=== PATIENT | female | born 1955 | race African-American/Black ===

== ENCOUNTER 2017-03-04 11:13 | Emergency (ER) | payer OTHER, MEDICARE ==
[~2017-03-04] VITALS: Ht 160 cm; Wt 73.0 kg
[~2017-03-04 11:13] MED LIST: EMPA1TAB3 PO; GLIP5TAB8 PO; LISI-515 PO; MIRA33504 PO; MOBI15TA PO; PERI8.6T PO; PHEN200C3 PO; ZANTTAB9 PO; lancets; test strips
[2017-03-04 11:20] VITALS: BP 165/89; PULSE 86; RESP 17; TEMP 98.4; O2SAT 99
[2017-03-04] MEDS ORDERED: ONDANSETRON HCL 4 MG/2 ML VIAL IVP ONE (11:30)
[2017-03-04] MEDS ORDERED: ZANT150T2 PO (11:30)
[2017-03-04] MEDS ORDERED: MORPHINE SULFATE 4 MG/ML INJ IV PUSH ONE (11:30)
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
[2017-03-04] MEDS ORDERED: NOVOLOGP2 SQ (11:35)
[2017-03-04 11:52] LABS: AUTOMATED NEUTROPHIL # 2.7 TH/MM3 (1.8-7.7); BASOPHIL % 0.6 % (0.0-2.0); EOSINOPHIL # 0.1 TH/MM3 (0-0.4); EOSINOPHIL % 1.3 % (0.0-4.0); HEMATOCRIT 34.9 % (35.0-46.0); HEMO FLAGS DIFF FINAL; LYMPH % 40.6 % (9.0-44.0); LYMPHOCYTE # 2.2 TH/MM3 (1.0-4.8); MEAN CELL VOLUME 86.1 FL (80.0-100.0); MEAN CORPUSCULAR HEMOGLOBIN 28.6 PG (27.0-34.0); MEAN CORPUSCULAR HGB CONC 33.2 % (32.0-36.0); MONO % 7.8 % (0.0-8.0); NEUT % 49.7 % (16.0-70.0); PLATELET COUNT 271 TH/MM3 (150-450); RED BLOOD COUNT 4.06 MIL/MM3 (4.00-5.30); WHITE BLOOD COUNT 5.4 TH/MM3 (4.0-11.0)
[2017-03-04 12:14] LABS: ALT (GPT) 13 U/L (10-53)
[2017-03-04 12:16] LABS: ALKALINE PHOSPHATASE 104 U/L (45-117); TOTAL BILIRUBIN ADULT 0.2 MG/DL (0.2-1.0)
[2017-03-04 12:37] LABS: ANION GAP 9 MEQ/L (5-15); AST (GOT) 14 U/L (15-37); BICARBONATE 24.2 MEQ/L (21.0-32.0); BLOOD UREA NITROGEN 19 MG/DL (7-18); CHLORIDE 107 MEQ/L (98-107); GLOMERULAR FILTRATION RATE 69 ML/MIN (>89); SODIUM (NA) 140 MEQ/L (136-145)
[2017-03-04 12:40] LABS: POTASSIUM 4.4 MEQ/L (3.5-5.1)
[2017-03-04] MEDS ORDERED: IOHEXOL 350 MG/ML 10 ML VIAL (for RAD DIAG) IVCONTRAST ONE (14:01)
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
[2017-03-04] MEDS ORDERED: TYLETAB34 PO (14:40)
== END 2017-03-04 15:16 | disposition home or self-care (01) ==
LOC: NEPE 11:13
DX: S30.1XXA Contusion of abdominal wall, initial encounter (principal); S39.012A Strain of muscle, fascia and tendon of lower back, initial encounter; E11.9 Type 2 diabetes mellitus without complications; V49.49XA Driver injured in collision with other motor vehicles in traffic accident, initial encounter; Y92.410 Unspecified street and highway as the place of occurrence of the external cause; Z79.4 Long term (current) use of insulin
CPT/HCPCS: 72131; 74177; 80053; 83690; 85025; 96374; 96375; 99284; J2270; J2405; L0150; Q9967

== ENCOUNTER 2017-04-28 17:51 | Emergency (ER) | payer MEDICARE, MEDICAID ==
[~2017-04-28] VITALS: Ht 162.6 cm; Wt 75.0 kg
[2017-04-28 17:51] VITALS: BP 209/104; PULSE 101; RESP 20; TEMP 99; O2SAT 100
[~2017-04-28 17:51] MED LIST changes: -MIRA33504 PO; +NOVOLOGP2 SQ; -PERI8.6T PO; +TYLETAB34 PO; +ZANT150T2 PO; -ZANTTAB9 PO; -lancets; -test strips
[2017-04-28 20:04] VITALS: BP 190/89
[2017-04-28] MEDS ORDERED: TETANUS/DIPHTHERIA TOXOID ADULT 0.5 ML VIAL IM ONE (20:15)
--- NOTE | 2017-04-28 20:23 | PD ---
HPI Chief Complaint: Laceration/Skin Injury Time Seen by Provider: 20:12 Travel History International Travel<30 days: No Contact w/Intl Traveler<30days: No Traveled to known affect area: No History of Present Illness HPI 61-year-old black female presents to emergency department for evaluation of a toe laceration which occurred last evening. She states that she was barefoot last evening and somehow cut her toe on something underneath her table. She states that she did not realize that she calls laceration until earlier today. Patient states that she has diabetes and neuropathy. She has not had a tetanus shot over 5 years. Pain is mild. PFSH Past Medical History Arthritis: Yes Cardiovascular Problems: Yes (HTN) Diabetes: Yes Diminished Hearing: No GERD: Yes Hypertension: Yes Musculoskeletal: Yes Neurologic: No Tetanus Vaccination: > 5 Years Menopausal: Yes Past Surgical History Gynecologic Surgery: Yes Hysterectomy: Yes Social History Alcohol Use: No Tobacco Use: No Substance Use: No Allergies-Medications (Allergen,Severity, Reaction): Coded Allergies: No Known Allergies (Verified Adverse Reaction, Unknown, 04/28/17) Reported Meds & Prescriptions Reported Meds & Active Scripts Active Keflex (Cephalexin) 500 Mg Cap 500 Mg PO Q6H 7 Days Tylenol-Codeine #3 (Acetaminophen-Codeine) 300-30 mg Tab 1 Tab PO Q4H PRN Glipizide 5 Mg Tab 5 Mg PO BIDAC Take 30 minutes before a meal Reported Novolog Inj (Insulin Aspart) 1,000 Unit/10 Ml Vial 20 Units SQ DAILY Zantac (Ranitidine HCl) 150 Mg Tab 150 Mg PO DAILY Jardiance (Empagliflozin) 25 Mg Tab 25 Mg PO DAILY Lisinopril 20 Mg Tab 20 Mg PO DAILY Mobic (Meloxicam) 15 Mg Tab 15 Mg PO DAILY Phenytoin Extended 200 Mg Cap 200 Mg PO BID Review of Systems General / Constitutional: No: Fever Eyes: No: Visual changes HENT: No: Headaches Cardiovascular: No: Chest Pain or Discomfort Respiratory: No: Shortness of Breath Gastrointestinal: No: Abdominal Pain Genitourinary: No: Dysuria Musculoskeletal: Positive: Edema, Pain Skin: Positive Other (laceration), No Rash Neurologic: No: Weakness Psychiatric: No: Depression Endocrine: No: Polydipsia Hematologic/Lymphatic: No: Easy Bruising Physical Exam Narrative GENERAL: This is a well-nourished, well-developed patient, in no apparent distress. SKIN: No rashes, ecchymoses or lesions. Warm and dry. HEAD: Atraumatic. Normocephalic. EYES: PERRL, EOMI, no discharge or injection. No scleral icterus. EARS: Clear NOSE: Nasal turbinates appear normal. THROAT: Mucosa pink and moist. Airway patent. NECK: Trachea midline. supple, moves head freely. LUNGS: Clear to auscultation. CV: Regular in rhythm. ABDOMEN: Soft nontender. EXT: No clubbing cyanosis. Examination of the left foot reveals a avulsion laceration to the plantar surface of the proximal left great toe. Laceration goes into the subcutaneous change tissues. I do not see any exposed tendon or bone. Laceration measures approximately 1.8 cm. The patient is able to extend and flex her toe freely. No discharge. No erythema or warmth. No obvious foreign body. Data Data Last Documented VS Vital Signs Date Time Temp Pulse Resp B/P (MAP) Pulse Ox O2 Delivery O2 Flow Rate FiO2 04/28/17 20:04 190/89 (122) 04/28/17 17:51 99.0 101 20 100 Room Air Orders Orders Tetanus/Diphtheria Tox Adult (Tetanus/Di (04/28/17 20:15) Toe (Min 2vws) (04/28/17 20:14) Cephalexin (Keflex) (04/28/17 20:30) Ed Discharge Order (04/28/17 20:52) MDM Medical Decision Making Medical Screen Exam Complete: Yes Emergency Medical Condition: Yes Medical Record Reviewed: Yes Interpretation(s) Left great toe: Negative for acute bony injury. Differential Diagnosis MDM: High Differential diagnoses: Fracture, sprain, strain, dislocation, contusion, neurovascular injury Narrative Course Patient's given tetanus immunization. X-ray of the left great toe. I've explained to the patient that we are unable to suture her wound tonight. Evaluated for possible bony injury and perform local wound care. X-rays negative. This is left great toe laceration-unsutured Diagnosis Primary Impression: left great toe laceration-unsutured Patient Instructions: General Instructions Additional Instructions: Rest. Elevation. Keep clean and dry. Keflex. Perform local wound care with soap, water, Neosporin. Recheck with your doctor on Monday. Return to the ER over the weekend if any problems develop. Med/Other Pt SpecificInfo: Prescription(s) given, Wound Care Scripts Cephalexin (Keflex) 500 Mg Cap 500 MG PO Q6H for Infection for 7 Days, #28 CAP 0 Refills Prov: Radha Dill MD 04/28/17 Disposition: 01 DISCHARGE HOME Condition: Stable Isac Diaz Apr 28, 2017 20:23
[2017-04-28] MEDS ORDERED: CEPH-460 PO (20:24)
[2017-04-28] MEDS ORDERED: CEPHALEXIN MONOHYDRATE 500 MG CAP PO ONE (20:30)
--- NOTE | 2017-04-28 21:05 | RADRPT ---
EXAM DATE/TIME: 04/28/2017 20:24 [facility] COMPARISON: No previous studies available for comparison. INDICATIONS : Lacerated left great toe today. MEDICAL HISTORY : Diabetes mellitus type II. SURGICAL HISTORY : None. ENCOUNTER: Initial ACUITY: 1 day PAIN SCORE: 8/10 LOCATION: Left Plantar surface great toe laceration. FINDINGS: Examination of the first digit of the left foot demonstrates no evidence of fracture or dislocation. No radiopaque foreign bodies are seen. Left great toe laceration. CONCLUSION: 1. No acute bony abnormalities. Laceration left great toe. Isac Phan MD on April 28, 2017 at 21:02 Board Certified Radiologist. This report was verified electronically.
== END 2017-04-28 21:05 | disposition home or self-care (01) ==
LOC: NEPD 17:51
DX: S91.112A Laceration without foreign body of left great toe without damage to nail, initial encounter (principal); E11.40 Type 2 diabetes mellitus with diabetic neuropathy, unspecified; I10 Essential (primary) hypertension; M19.90 Unspecified osteoarthritis, unspecified site; K21.9 Gastro-esophageal reflux disease without esophagitis; X58.XXXA Exposure to other specified factors, initial encounter; Z23 Encounter for immunization; Z79.4 Long term (current) use of insulin; Z79.899 Other long term (current) drug therapy
CPT/HCPCS: 73660; 90471; 90714

== ENCOUNTER 2017-09-25 12:11 | Emergency (ER) | payer OTHER, MEDICARE, MEDICAID ==
[~2017-09-25] VITALS: Ht 165.1 cm; Wt 84.5 kg
[~2017-09-25 12:11] MED LIST changes: +CEPH-460 PO
[2017-09-25 12:31] VITALS: BP 201/112; PULSE 85; RESP 18; TEMP 99.3; O2SAT 99
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
[2017-09-25] MEDS ORDERED: ORPHENADRINE INJ 60 MG/2 ML AMP IM ONE (15:15)
[2017-09-25] MEDS ORDERED: MORPHINE SULFATE 8 MG/ML INJ IM ONE (15:15)
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
[2017-09-25] MEDS ORDERED: CYCL5TAB PO (16:30)
[2017-09-25] MEDS ORDERED: ONDANSETRON ODT 4 MG TAB PO ONE (16:30)
[2017-09-25] MEDS ORDERED: IBUP1TAB5 PO (16:30)
[2017-09-25 17:14] LABS: BACTERIA, URINE RARE /hpf; BILIRUBIN, URINE NEG (NEG); BLOOD, URINE TRACE (NEG); GLUCOSE,URINE 1000 mg/dL (NEG); KETONE, URINE NEG (NEG); NITRITE,URINE NEG (NEG); PH, URINE 5.5 (5.0-8.5); SQUAMOUS EPITHELIAL CELL URINE 29 /hpf (0-5); URINE COLOR LIGHT-YELLOW (YELLW/STRAW); URINE LEUKOCYTE ESTERASE LARGE (NEG)
== END 2017-09-25 18:25 | disposition home or self-care (01) ==
LOC: NEPD 12:11
DX: S16.1XXA Strain of muscle, fascia and tendon at neck level, initial encounter (principal); S39.012A Strain of muscle, fascia and tendon of lower back, initial encounter; E11.9 Type 2 diabetes mellitus without complications; I10 Essential (primary) hypertension; G89.29 Other chronic pain; R82.71 Bacteriuria; V43.62XA Car passenger injured in collision with other type car in traffic accident, initial encounter; Z79.4 Long term (current) use of insulin
CPT/HCPCS: 70450; 72110; 72125; 81001; 86403; 87086; 96372; 99285; J2270; J2360; L0150